=== PATIENT | male | born 1945 | race Caucasian/White ===

== ENCOUNTER → 2024-04-11 12:32 | Outpatient (REF) | payer OTHER, SELFPAY | LOC: RCS 12:32 | PROVIDERS: ATTENDING PHYSICIAN Internal Medicine Cardiovascular Disease; FAMILY PHYSICIAN Family Medicine | DX: E78.2 Mixed hyperlipidemia (principal) | CPT/HCPCS: 93225; 93226 ==

== ENCOUNTER 2024-06-18 15:04 | Observation (INO) | payer OTHER, SELFPAY ==
[2024-06-18] VITALS (8 sets, daily range): BP systolic 124–156; BP diastolic 55–76; BMI 31.3; BMI 30.5
[2024-06-18] MEDS: NSS 1000 IV ×2 (09:10→15:35)
[2024-06-18 09:32] LABS: % Basophils 0.6 % (0-2); % Eosinophils 1.4 % (0-6); % Immature Granulocytes 0.6 % (0-0.5); % Lymphocytes 11.7 % (20.5-51.1); % Monocytes 11.4 % (1.7-9.3); % Neutrophils 74.3 % (42.2-75.2); Absolute Basophils 0.1 10^3/uL (0-0.2); Absolute Eosinophils 0.1 10^3/uL (0-0.7); Absolute Immature Granulocytes 0.1 10^3/uL (0-0.05); Absolute Neutrophils 6.4 10^3/uL (1.4-6.5); Hematocrit 38.4 % (39.0-52.0); Hemoglobin 13.3 g/dL (13.0-18.0); Mean Corp Hgb Conc. 34.6 g/dL (33.0-37.0); Mean Corpuscular Hgb 30.2 pg (27.0-31.0); Mean Corpuscular Volume 87.3 fL (80.0-94.0); Nucleated Red Blood Cells % 0 % (-); Platelet Count 260 10^3/uL (130-400); Red Cell Dist. Width 13.7 % (11.5-14.5); White Blood Cell Count 8.5 10^3/uL (4.8-10.8)
[2024-06-18 09:45] LABS: COVID-19 Antigen Negative (Negative); Lactic Acid 2.4 mmol/L (0.7-2.0)
[2024-06-18 09:47] LABS: ALT (SGPT) 20 U/L (0-50); AST (SGOT) 23 U/L (17-59); Albumin 3.3 g/dl (3.5-5.0); Alkaline Phosphatase 133 U/L (38-126); Blood Urea Nitrogen 37 mg/dl (9-20); Calcium 9.2 mg/dl (8.4-10.2); Carbon Dioxide 26 mmol/L (22-30); Chloride 104 mmol/L (98-107); Estimated Creatinine Clearance 43 ml/min; Glucose 147 mg/dl (70-99); Potassium 4.6 mmol/L (3.5-5.1); Sodium 137 mmol/L (135-145); Total Bilirubin 0.9 mg/dl (0.2-1.3); Total Protein 5.8 g/dl (6.3-8.2); eGFR 47.65
[2024-06-18 10:00] LABS: Urine Albumin Trace (Neg - Trace); Urine Bilirubin Negative (Negative); Urine Character Clear (Clear); Urine Color Yellow; Urine Glucose Negative (Negative); Urine Ketone Negative (Negative); Urine Leukocyte Negative (Negative); Urine Nitrite Negative (Negative); Urine Occult Blood Negative (Negative); Urine Specific Gravity 1.015 (<1.030); Urine Urobilinogen Negative (Neg - 1+)
--- NOTE | 2024-06-18 10:30 | ED.GENMED ---
History of Present Illness
General
Chief Complaint: Cold/Flu/URI Symptoms
Source: patient and spouse
Exam Limitations: none
Time Seen by Provider: 06/18/24 08:52
Nursing documentation reviewed up to this point in time: agreed with
History of Present Illness
History of Present Illness:
78 yo male w h/o HLD, NIDDM presents for fever/chills, sweats despite taking two different antibiotics
06/12: saw PCP Dr. Willoughby for routing PE, did prostate exam and told it was enlarged, started him on Doxycycline
06/15 developed fever 103, chills Dr. Willoughby stopped the Doxy (after 6 doses) started Keflex 500 mg QID, (has had 10 doses)
Has had bed soaking sweats at night
Last night fever 102, night sweats
Past History
Past History
ED Past Medical History: Hypercholesterolemia, NIDDM and Psychiatric (depression)
ED Past Surgical History: Other (hernia repair)
Social History
Tobacco: Non-smoker
Alcohol: None
Personal:
Living: with family
Employment: Retired
Review of Systems
Review of Systems
Allergies reviewed?: Yes
All Other Systems: ROS reviewed and negative except as documented in HPI and ROS
Constitutional: Reports fever and chills
EENT: Denies sore throat
Respiratory: Denies cough or trouble breathing
Cardiac: Reports diaphoresis; Denies chest pain, palpitations or syncope
ABD/GI: Denies abdominal pain, nausea, vomiting, diarrhea or constipated
: Denies dysuria, frequency, flank pain, incontinence or urgency
Musculoskeletal: Reports no symptoms
Skin: Reports no symptoms
Neurological: Reports no symptoms
Phy Exam
Physical Exam
Physical Exam:
GENERAL: No acute distress. A&Ox3.
CONSTITUTIONAL: Afebrile.
EYES: PERRL, conjunctivae normal
Neck: Supple
ENMT: moist mucus membranes, Pharynx nl
RESPIRATORY: Regular respirations, nonlabored, lungs clear.
CARDIOVASCULAR: Regular rate and rhythm, no murmurs, no rubs.
GI: Soft, nontender, normal BS
MUSCULOSKELETAL: Moves with ease. Well perfused.
SKIN: Warm, dry, pink
PSYCH: Normal mood and affect. Well kept, interactive and appropriate
NEUROLOGIC: Awake, alert and oriented. No focal neurological deficits
Course
Orders/Labs/Results
Orders:
Orders
06/18/24 09:08
CR Chest - 2 Views Urgent
Comment:
Reason For Exam: fevers, chills
06/18/24 09:09
0.9% Sodium Chloride 1000 ml [Nss] 1,000 ml IV BOLUS
06/18/24 09:17
COVID-19 Antigen Urgent
Source: Nasal Swab
Complete Blood Count/With Diff Urgent
Comprehensive Metabolic Panel Urgent
Lactic Acid Q4H
Comment: CANCEL 2nd LACTIC ACID IF 1st LACTIC ACID IS LESS THAN 2
Blood Culture Urgent
THANH Source: Blood/Venous
Specimen Description:
Influenza A+B Rapid Molecular Urgent
THANH Source: Nasal Swab
Specimen Description:
06/18/24 09:51
Urinalysis Reflex To Culture Urgent
Date Specimen was Collected: 06/18/24
Time Specimen was Collected: 09:50
06/18/24 Lunch
1800 calorie (15 carb) Diabetic
At Your Request: Full Participation
06/18/24 13:09
CefTRIAXone [Rocephin] 1,000 mg IV NOW STA
06/18/24 14:37
Lactic Acid Q4H
Comment: CANCEL 2nd LACTIC ACID IF 1st LACTIC ACID IS LESS THAN 2
Blood Culture Urgent
THANH Source: Blood/Venous
Specimen Description:
06/18/24 14:41
Acetaminophen [Tylenol] 1,000 mg PO NOW STA
US Abdomen Complete/Upper Urgent
Comment:
Reason For Exam: RUQ pain
06/18/24 14:44
Admit/Transfer Patient As Directed
Co-Sign Provider:
Level of Care: Observation services
Assign to:: Telemetry
Physician / Group: emma/hospitalist
Diagnosis: fever, chills, LLL pneumonia, RUQ abd pain
Reason for Telemetry: Arrhythmia
Date to Stop Telemetry: 06/21/24
Time to Stop Telemetry: 11:00
Reason for Hospitalization: fever, chills, LLL pneumonia, RUQ abd pain
06/18/24 14:49
PRN Pain Medication Management As Directed
May give lesser potent ordered pain med per pt: Yes
preference::
Protocol:: Medication orders for pain may be administered in a
manner that supports deferring to patient preference
when the pt is:
- Requesting an ordered lesser potent pain medication.
Least to most potent pain medications are defined
as: acetaminophen < NSAID < tramadol < opioids
(morphine, oxycodone, hydromorphone).
- Requesting a lesser dose of the same medication IF
ORDERED.
- Requesting a less intrusive route of administration
if both routes are prescribed by the provider (PO <
IV).
06/18/24 14:53
Code Status As Directed
Resuscitation Status: Full Code
06/18/24 14:57
MetroNIDAZOLE 500 MG/100 ML [Flagyl 500 mg] 100 ml IV NOW
06/18/24 15:00
Venlafaxine Extended Release [Effexor Xr] 112.5 mg PO DAILY
06/18/24 15:03
0.9% Sodium Chloride 1000 ml [Nss] 1,000 ml IV 125 mls/hr
06/18/24 16:41
Dextrose 50%-Water [Dextrose 50% Syringe] 12.5 grams IV [id number] PRN
Glucagon [GlucaGen] 1 mg IM PRN PRN
Insulin Aspart Corrective Low [Novolog Flexpen-Low Resistance] See Protocol SC AC
MetroNIDAZOLE 500 MG/100 ML [Flagyl 500 mg] 100 ml IV Q8
06/18/24 16:41
Echo 2D MMode Color/Doppler [Echo 2D MMode Color/Doppler] Routine
Reason for Study: murmur/fever
Legionella Urinary Antigen Routine
THANH Source: Urine
Specimen Description:
Respiratory Culture/Gram Stain Routine
THANH Source: Sputum
Specimen Description:
Activity As Directed
Activity Level: Out of Bed-Early Mobility
Bedside Glucose Monitoring As Directed
Frequency: AC&HS
Additional Instructions:: Change to q6h if pt on TPN, tube feeding or not eating
Intake/ Output As Directed
Frequency: Per unit guidelines
Vital Signs As Directed
Frequency: Per unit guidelines
Weight As Directed
Frequency: Once
Comment: on admission
Pulse Ox/cont/shift [RESP] Routine
Quantity: 1
Pulse Ox/spot Check [RESP] Routine
Quantity: 1
Pt Eval And Treat Routine
Activity Level: With Assistance
DX Deep Vein Thrombosis Video Routine
06/18/24 18:00
Enoxaparin Sodium [Lovenox] 40 mg SC QPM
Rosuvastatin Calcium [Crestor] 5 mg PO QPM
06/18/24 20:00
Propranolol [Inderal] 40 mg PO BID
06/18/24 22:00
Tamsulosin [Flomax] 0.8 mg PO HS
06/19/24 06:00
Complete Blood Count/With Diff IN AM
Comprehensive Metabolic Panel IN AM
06/19/24 08:00
Multivitamin [Theragran] 1 tablet PO DAILY
Cpfrphviualt-Wrv-Gfhz [Androgel] 5 grams TOPICAL DAILY
06/19/24 14:00
CefTRIAXone [Rocephin] 1,000 mg IV Q24H
06/19/24 16:00
Azithromycin 500 mg/250 ml [Zithromax Infusion] 500 mg in 250 ml IV Q24H
06/21/24 11:00
DC Protocol for Telemetry ONCE
Abnormal Lab Results
06/18/24
09:17
RBC 4.40 L 10^6/uL
(4.70-6.10)
Hct 38.4 L %
(39.0-52.0)
Abs Immat Gran (auto) 0.1 H 10^3/uL
(0-0.05)
Absolute Lymphs (auto) 1.0 L 10^3/uL
(1.2-3.4)
Absolute Monos (auto) 1.0 H 10^3/uL
(0.1-0.6)
Immature Gran % 0.6 H %
(0-0.5)
Lymphocytes % 11.7 L %
(20.5-51.1)
Monocytes % 11.4 H %
(1.7-9.3)
BUN 37 H mg/dl
(9-20)
Creatinine 1.5 H mg/dL
(0.7-1.3)
Glucose 147 H mg/dl
(70-99)
Lactic Acid 2.4 H mmol/L
(0.7-2.0)
Alkaline Phosphatase 133 H U/L
(38-126)
Total Protein 5.8 L g/dl
(6.3-8.2)
Albumin 3.3 L g/dl
(3.5-5.0)
06/18/24 09:17
06/18/24 09:17
Vital Signs
Initial and Last Documented VS:
Initial Vital Signs
Temp Pulse Resp BP Pulse Ox
98.6 F 68 18 131/62 97
06/18/24 08:11 06/18/24 08:11 06/18/24 08:11 06/18/24 08:11 06/18/24 08:11
Last Documented Vital Signs
Temp Pulse Resp BP Pulse Ox
98.7 F 77 16 124/61 95
06/18/24 16:51 06/18/24 16:51 06/18/24 16:51 06/18/24 16:51 06/18/24 16:51
Driver/Refuse Collector consulted with Physician
Driver/Refuse Collector consulted with physician?: Yes
Name of Physician Consulted: Mily
MDM/Problems Addressed
Differential Diagnosis Includes:
UTI, prostatitis, bacteremia
MDM/Problems Addressed:
78 yo male w h/o HLD, NIDDM presents for fever/chills, sweats despite taking two different antibiotics
06/12: saw PCP Dr. Willoughby for routing PE, did prostate exam and told it was enlarged, started him on Doxycycline
06/15 developed fever 103, chills Dr. Willoughby stopped the Doxy (after 6 doses) started Keflex 500 mg QID, (has had 10 doses)
Has had bed soaking sweats at night
Last night fever 102, night sweats
10:30 a.m.
CBC unremarkable.
CMP: BUN/Creat 37/1.5 otherwise unremarkable
U/A neg
Covid neg
Flu neg
Lactic 2.[address] Minor
Pt totally nontoxic appearing, feels well. Will repeat Lactic after fluids
12:50 p.m.
CXR: Radiology report read: IMPRESSION:
Mild left basilar atelectasis and/or pneumonia.
Pt with shaking chills. Temp 99.4
Patient states he does not know what his reaction to penicillin is. Someone told him when he was 14 years old that he was allergic
Rocephin IV ordered
Hospitalist notified of admission
Blood culture pending
2:45 p.m.
Pt fever 102.0, Dr. Hamm in, requests US upper abd for RUQ pain, Also to start Azithromycin, Tylenol ordered for fever.
*Critical Care Note
Total Time (30-74mins, 75-104mins- exclusive of procedures): Not Applicable
ED Attending Note
-
Portions of this chart may have been created with voice recognition software.� Occasional wrong word or��sound alike� substitutions may have occurred due to the inherent limitations of voice recognition software.
Discharge Plan
Departure
Patient Disposition: Admit
Date of Disposition: 06/18/24
Time of Disposition: 13:08
Presentation/result/management discussed w/ accepting MD/DO: Hospitalist
Condition: Fair
Covid-19: Negative COVID-19
Discharge Problem:
Pneumonia
Interventions
Interventions:
*Risk Screen - Suicide Last Done: 06/18/24 08:11
*General Assessment Last Done: 06/18/24 08:11
*Neglect/Abuse Screening Last Done: 06/18/24 08:11
ED- Fall Risk Assessment Last Done: 06/18/24 09:04
*ED COVID-19 Vaccine History Last Done: 06/18/24 14:20
*Nursing Disposition Last Done: 06/18/24 16:43
ED- Pulmonary Assessment Last Done: 06/18/24 09:05
Discharge Date and Time
Discharge Date/Time: 06/18/24 16:46
--- NOTE | 2024-06-18 14:05 | HPS.HSE ---
Family Physician
-
Family Physician: José Miguel Willoughby
Chief Complaint
-
fever/chills
History of Present Illness
The patient is a 78 yo male with PMH significant for HLD, NIDDM, depression, sinus tachycardia, orchiectomy, Sjogren's, RA, who presents to the ED due to fever and chills, sweats, despite being on oral OP antibiotics due to recent diagnosis of
prostatitis. He saw his PCP on 06/12 for routine visit, who did prostate exam and he was diagnosed with prostatitis, started on Doxycycline, then on 06/15 he developed a fever up to 103 with chills. He was then started on Keflex (had 6 doses of Doxy),
and now 10 doses of Keflex. Fever 102 last night. Found to have LLL pneumonia vs atelectasis on CXR in ED. He has fever 102 in ED currently, chills, decreased oral intake due to low appetite over the past 1 week. Of note, he had dental work- 2 root
canals over the past 3 weeks. Dentist said there was no evidence for infection of the tooth. He's recently started propranolol for intermittent sinus tachycardia. He also notes 2 weeks of intermittent RUQ abdominal pain, no n/v/d, no abdominal
complaints otherwise, no dysuria, no CP, no cough, no SOB, no bleeding. No recent travel.
ED txt:
US abd pending
IVF
IV Rocephin, IV Azithromycin
Medical History
Past Medical History
Past Medical History: Reports HTN, Hypercholesterolemia, NIDDM, Psychiatric (Depression) and Other (RA, polycythemia, Sjogren's, Vit D deficiency, not on oral immunosuppressants )
Past Surgical History: Reports Other (Umbilical hernia (2 hernia repairs); orchiectomy w silicone testes)
Social History
Tobacco: Former Smoker
Alcohol: None
Drug: None
Personal:
Living: With Family
Family History
Family History: Not pertinent
Allergies / Home Medications
Allergies reflects when Allergies were last updated in [employer] [facility].
Home Medications with original date entered in [employer] [facility]
Allergy/Medication List:
Allergies
Allergy/AdvReac Type Severity Reaction Status Date / Time
Cephalosporins Allergy Unknown Verified 06/18/24 08:11
penicillin G Allergy unknow Verified 06/18/24 08:11
Penicillins Allergy Unknown Verified 06/18/24 08:11
Sulfa (Sulfonamide Allergy Unknown Verified 06/18/24 08:11
Antibiotics)
sulfamethoxazole Allergy Unknown Verified 06/18/24 08:11
trimethoprim Allergy Unknown Verified 06/18/24 08:11
Home Medications
rosuvastatin 5 mg tablet 5 mg PO QPM 05/11/11
testosterone 1 % (50 mg/5 gram) transdermal gel packet (AndroGel) 1 applic topical DAILY 05/11/11
cephalexin 500 mg capsule 500 mg PO QID 06/18/24
cinnamon bark 500 mg capsule (Cinnamon) 500 mg PO DAILY 06/18/24
gisell (Zingiber officinalis) 250 mg capsule (gisell extract) 250 mg PO DAILY 06/18/24
metformin 500 mg tablet,extended release 24 hr 2,000 mg PO DAILY 06/18/24
propranolol 40 mg tablet 40 mg PO BID 06/18/24
tamsulosin 0.4 mg capsule (Flomax) 0.8 mg PO HS 06/18/24
therapeutic multivitamin 1 tab PO DAILY 06/18/24
turmeric 400 mg capsule 400 mg PO DAILY 06/18/24
venlafaxine 37.5 mg capsule,extended release 24 hr (Effexor XR) 112.5 mg PO DAILY 06/18/24
vitamins A,C,E-fdfo-hsepxt 4,296 mcg-226 mg-90 mg capsule (ICaps AREDS) 1 cap PO DAILY 06/18/24
Review of Systems
-
A 12 point ROS was completed and negative except as noted: Yes
Physical Exam
Vital Signs
Vital Signs
Temp Pulse Resp BP Pulse Ox
98.6 F 68 18 137/57 98
06/18/24 08:11 06/18/24 08:11 06/18/24 08:11 06/18/24 10:00 06/18/24 11:00
Physical Exam
General: Well Developed, Well Nourished and Other (fever/chills)
HEENT: Atraumatic, Good Dentition (no evidence for abscess nor infection) and Other (eyes injected/dry b/l)
Respiratory: Clear
Cardiac: S1/S2, Regular Rhythm and Murmur (possible GALE, difficult to appreciate due to body habitus)
GI: Soft, Normal Bowel Sounds and Other (voluntary guarding RUQ)
Musculoskeletal: No Clubbing, No Cyanosis and No Edema
Skin: Warm and Dry
Neuro: AO x 3, No Motor Deficits and Nonfocal/grossly intact
Psych: Calm
Laboratory Results
-
06/18/24 09:17
06/18/24 09:17
Laboratory Results
Lactic Acid 2.4 mmol/L (0.7-2.0) H 06/18/24 09:17
Total Bilirubin 0.9 mg/dl (0.2-1.3) 06/18/24 09:17
AST 23 U/L (17-59) 06/18/24 09:17
ALT 20 U/L (0-50) 06/18/24 09:17
Alkaline Phosphatase 133 U/L (38-126) H 06/18/24 09:17
Data Reviewed
-
Diagnostic Radiology: Image Personally Visualized and interpreted, Report Reviewed by me (LLL atelectasis vs PNA), Discussed with Nurse, Discussed with Patient and Discussed with Family
Lab Data: Labs Reviewed by me, Discussed with Nurse, Discussed with Patient and Discussed with Family
Impression/Plan
-
IMPRESSION:The patient is a 78 yo male with PMH significant for HLD, NIDDM, depression, sinus tachycardia, orchiectomy, Sjogren's, RA, who presents to the ED due to fever and chills, sweats, despite being on oral OP antibiotics due to recent
diagnosis of prostatitis. He saw his PCP on 06/12 for routine visit, who did prostate exam and he was diagnosed with prostatitis, started on Doxycycline, then on 06/15 he developed a fever up to 103 with chills. He was then started on Keflex (had 6
doses of Doxy), and now 10 doses of Keflex. Fever 102 last night. Found to have LLL pneumonia vs atelectasis on CXR in ED. He has fever 102 in ED currently, chills, decreased oral intake due to low appetite over the past 1 week. Of note, he had
dental work- 2 root canals over the past 3 weeks. Dentist said there was no evidence for infection of the tooth. He's recently started propranolol for intermittent sinus tachycardia. He also notes 2 weeks of intermittent RUQ abdominal pain, no
n/v/d, no abdominal complaints otherwise, no dysuria, no CP, no cough, no SOB, no bleeding. No recent travel.
#Fever, chills, persistent despite oral antibiotics; CXR with Mild left basilar atelectasis versus pneumonia. Given fever, favor possible atypical pneumonia, gram negative, versus FUO and will also pursue work-up
-pt c/o RUQ abd pain x 2 weeks- US Abd pending in ED
-Cont IV Romaine/IV Azithromycin, add IV Flagyl in light of recent dental work/root canal to cover anaerobes, consider ID consult if fever persists
-IVF
-Blood and sputum cx
-monitor O2
-KHURRAM
-Echo given fever and to evaluate heart valves (may have murmur, but difficult to appreciate on exam)
#EMERITA - Creat 1.5, baseline likely 0.9
-Continuie IVF 125 mL per hour NS for one more bag, then repeat labs in am
# Lactic acidosis, 2.4
-likely due to infection
-cont IVF
-serial LA level /trend
-hold metformin for now
#NIDDM
-hold metformin
-SSI, low dose
-monitor glucose
#RA/Sjogren's, not on immunosuppressants
#Sinus tachy , history of, currently NSR
-check EKG
-tele overnight
-cont home Propranolol
#Depression
-Cont Effexor XR
#Essential HTN, BP stable
-cont home meds Propranolol
#HLD
-continue rosuvastatin
#BPH
-Flomax
DVT proph-Lovenox
Full Code
[2024-06-18] MEDS: TYLENOL 1000 MG PO (14:46)
[2024-06-18] MEDS: ROCEPHIN 1000 MG IV (14:49)
[2024-06-18 15:12] LABS: Lactic Acid 1.5 mmol/L (0.7-2.0)
[2024-06-18] MEDS: EFFEXOR XR 112.5 MG PO (15:32)
[2024-06-18] MEDS: ZITHROMAX 255 MG IV (15:33)
[2024-06-18] MEDS: LOVENOX 40 MG SC (17:29)
[2024-06-18] MEDS: EFFEXOR XR PO ×2 (17:29→17:39)
[2024-06-18] MEDS: CRESTOR 5 MG PO (17:29)
[2024-06-18] MEDS: FLAGYL 500 MG 100 IV ×2 (17:29→23:19)
[2024-06-18 17:48] LABS: Glucose - Point of Care 129 mg/dl (70-99)
[2024-06-18 19:08] LABS: Hepatitis C Antibody Negative (Negative)
[2024-06-18 21:06] LABS: Glucose - Point of Care 114 mg/dl (70-99)
[2024-06-18] MEDS: INDERAL 40 MG PO (21:29)
[2024-06-18] MEDS: FLOMAX 0.8 MG PO (21:35)
[2024-06-19] VITALS (8 sets, daily range): BP systolic 135–158; BP diastolic 50–66; PULSE 70; O2SAT 99
[2024-06-19] MEDS: TYLENOL 1000 MG PO (00:49)
[2024-06-19 08:01] LABS: Glucose - Point of Care 116 mg/dl (70-99)
--- NOTE | 2024-06-19 08:07 | W.PN.HOSP.TC ---
Today's Communication/Plan
-
IV antibiotics. ID consult.
Assessment / Plan
Assessment / Plan
Physical exam:
General: Well Developed, Well Nourished and No Apparent Distress
HEENT: Normocephalic, Atraumatic and Moist Mucous Membranes
Respiratory: Clear to Auscultation; Negative Wheezes, Rales or Rhonchi
Cardiac: Regular Rhythm and S1/S2
GI: Soft, Nontender and Nondistended
Musculoskeletal: No Clubbing, No Cyanosis and No Edema
Neuro: Awake, Alert and Oriented
Psych: Calm
A/P:
Fever, not localizing/sepsis, POA:
Empirically on IV Rocephin and metronidazole (not sure we need to keep metronidazole at this point)
Blood cultures pending but no growth
Echocardiogram done but pending
Ultrasound of the abdomen unremarkable for acute finding but left kidney cyst that we will follow-up as outpatient and discussed with patient and .
Chest x-ray atelectasis versus pneumonia-likely atelectasis (not very impressive with findings)
UA unremarkable
Will request ID consult-Colton texted ID today.
Discussed with at bedside
Sinus tachycardia:
Related to above
Supportive care
EMERITA:
Continue IV fluids but decrease rate
Continue to monitor renal function
Diabetes mellitus type 2:
Blood sugar 124 this morning
Agree holding metformin
Continue insulin sliding
Monitor blood sugars
Sjogren's syndrome/rheumatoid arthritis:
Not on any immunosuppressant
Hypertension:
Continue home antihypertensives.
Monitor blood pressure and adjust medications accordingly.
Hyperlipidemia:
Continue home statins
Depression:
Continue Effexor
BPH:
Continue Flomax
DVT prophylaxis:
Lovenox
CODE STATUS:
Full code
Total time spent on today's encounter was 52 minutes which included time spent in counseling the patient/family regarding diagnosis and treatment plan as listed above, goals of care, and symptom management. Case was discussed with nursing staff,
specialists, and care coordinators/case management. All labs and imaging personally reviewed by me. Remainder the time spent in detailed review of previous records, lab data, imaging, and other medical provider documentation.
Anticipated Discharge: 24 - 48 hours
Subjective/Interval History
-
Date of Service: June 19, 2024
Patient still having fevers and Tmax 103 Fahrenheit. Generalized weakness. No rash. No abdominal pain. Had loose stools prior but not today. No chest pain or shortness of breath.
Objective Data
-
Labs:
Laboratory Results
06/19/24
07:54
WBC Pending
Hgb Pending
Hct Pending
Plt Count Pending
Sodium Pending
Potassium Pending
Chloride Pending
Carbon Dioxide Pending
BUN Pending
Creatinine Pending
Glucose Pending
Calcium Pending
Total Bilirubin Pending
AST Pending
ALT Pending
Alkaline Phosphatase Pending
Vital Signs:
Vital Signs
Temp Pulse Resp BP Pulse Ox
98.2 F 66 16 138/62 96
06/19/24 03:32 06/19/24 03:32 06/19/24 03:32 06/19/24 03:32 06/19/24 03:32
I&O
06/18/24 06/19/24 06/20/24
06:59 06:59 06:59
Intake Total 660 / 660
Output Total 375 / 375
Balance 285 / 285
[2024-06-19 09:04] LABS: % Basophils 0.8 % (0-2); % Eosinophils 1.3 % (0-6); % Immature Granulocytes 1.6 % (0-0.5); % Lymphocytes 15.3 % (20.5-51.1); % Monocytes 12.6 % (1.7-9.3); % Neutrophils 68.4 % (42.2-75.2); Absolute Basophils 0.1 10^3/uL (0-0.2); Absolute Eosinophils 0.1 10^3/uL (0-0.7); Absolute Immature Granulocytes 0.2 10^3/uL (0-0.05); Absolute Lymphocytes 1.4 10^3/uL (1.2-3.4); Absolute Monocytes 1.2 10^3/uL (0.1-0.6); Absolute Neutrophils 6.3 10^3/uL (1.4-6.5); Hematocrit 39.1 % (39.0-52.0); Hemoglobin 13.3 g/dL (13.0-18.0); Mean Corpuscular Hgb 30.8 pg (27.0-31.0); Mean Corpuscular Volume 90.5 fL (80.0-94.0); Mean Platelet Volume 10.1 fL (7.4-10.4); Nucleated Red Blood Cells % 0 % (-); Platelet Count 250 10^3/uL (130-400); Red Blood Cell Count 4.32 10^6/uL (4.70-6.10); Red Cell Dist. Width 13.9 % (11.5-14.5); White Blood Cell Count 9.2 10^3/uL (4.8-10.8)
--- NOTE | 2024-06-19 09:34 | PTOTSP ---
Patient demonstrates safe and independent mobility, no skilled physical therapy needs at this time.
[2024-06-19 09:37] LABS: ALT (SGPT) 35 U/L (0-50); AST (SGOT) 39 U/L (17-59); Albumin 3.1 g/dl (3.5-5.0); Alkaline Phosphatase 199 U/L (38-126); Blood Urea Nitrogen 27 mg/dl (9-20); Calcium 8.8 mg/dl (8.4-10.2); Carbon Dioxide 27 mmol/L (22-30); Chloride 105 mmol/L (98-107); Estimated Creatinine Clearance 45 ml/min; Glucose 124 mg/dl (70-99); Potassium 4.5 mmol/L (3.5-5.1); Total Bilirubin 0.6 mg/dl (0.2-1.3); Total Protein 5.4 g/dl (6.3-8.2); eGFR 51.77
[2024-06-19 09:43] LABS: Sodium 138 mmol/L (135-145)
[2024-06-19] MEDS: EFFEXOR XR 112.5 MG PO (10:39)
[2024-06-19] MEDS: THERAGRAN 1 TABLET PO (10:40)
[2024-06-19] MEDS: INDERAL 40 MG PO ×2 (10:40→21:41)
[2024-06-19] MEDS: FLAGYL 500 MG 100 IV (10:40)
[2024-06-19] MEDS: TYLENOL 650 MG PO ×3 (10:53→23:30)
[2024-06-19 11:52] LABS: Glucose - Point of Care 125 mg/dl (70-99)
--- NOTE | 2024-06-19 12:55 | CON.ID ---
Chief Complaint / Past History
History of Present Illness
Cory Romero is a 78-year-old man being evaluated at the request of Dr. Rivas in regards to fever. History is obtained from chart review, along with patient interview.
The patient has a significant past medical history of diabetes mellitus. On 06/12/2024 he was in to see his PCP for routine physical exam. During that visit he was told he had an enlarged prostate and he was started on doxycycline. On 06/15 he
developed fevers to 103 degrees and he was changed from doxycycline to Keflex. Despite antibiotics he has been having ongoing fever, along with night sweats. He reports multiple negative COVID testing. No reported sick contacts.
No recent travel noted. There are no pets in the house. He has minimal outdoor exposure other than mowing the grass last week.
No history of rashes. No shortness of breath, cough or congestion. No sputum production. No abdominal pain. No dysuria or hematuria.
Past History
Additional Past Medical History:
Dyslipidemia
NIDDM
Depression
Additional Past Surgical History:
Hernia repair
Orchiectomy
Allergy History:
Penicillins Allergy (Verified 06/18/24 08:11)
Reported rash at age 14.
Sulfa (Sulfonamide Antibiotics) Allergy (Verified 06/18/24 08:11)
Unknown
Medications Reviewed: Yes
Current Antibiotics:
Azithromycin 5 mg IV every 24 hours
Ceftriaxone 1 g IV every 24 hours
Social History
Tobacco: Non-Smoker
Alcohol: None
Drug: None
Personal:
Living: With Family
Employment: Retired
Family History
Family History: Not Pertinent
Review of Systems
Vital Signs
Temp Pulse Resp BP Pulse Ox
99.9 F 69 24 158/66 97
06/19/24 12:19 06/19/24 12:05 06/19/24 12:05 06/19/24 12:05 06/19/24 12:05
Physical Exam
Physical Exam
Constitutional: No Acute Distress, Comfortable, Non-toxic and Obese
Eyes: No Conjunctival Hemorrhage and Sclera Anicteric
Pharynx: Benign
Oral: No Thrush and No Ulcers
Cardiovascular: Regular Rate and S1/S2; Negative S3/S4 or Murmur
Pulmonary: Clear and Non Labored; Negative Wheezes, Rales or Rhonchi
Gastrointestinal: Soft, Non Tender, Non Distended, No Rebound and No Guarding
Extremities: Negative Edema, Cyanosis or Erythema
Skin: Warm and Dry; Negative Rash or Jaundice
Neurological: Awake, Alert, Oriented and AO x 3; Negative Meningeal Signs
Psychological: Calm
Lab / Diagnostic Study Results
06/19/24 07:54
06/19/24 07:54
Abs Immat Gran (auto) 0.2 10^3/uL (0-0.05) H 06/19/24 07:54
Absolute Neuts (auto) 6.3 10^3/uL (1.4-6.5) 06/19/24 07:54
Absolute Lymphs (auto) 1.4 10^3/uL (1.2-3.4) 06/19/24 07:54
Absolute Monos (auto) 1.2 10^3/uL (0.1-0.6) H 06/19/24 07:54
Absolute Basos (auto) 0.1 10^3/uL (0-0.2) 06/19/24 07:54
Immature Gran % 1.6 % (0-0.5) H 06/19/24 07:54
Neutrophils % 68.4 % (42.2-75.2) 06/19/24 07:54
Lymphocytes % 15.3 % (20.5-51.1) L 06/19/24 07:54
Monocytes % 12.6 % (1.7-9.3) H 06/19/24 07:54
Eosinophils % 1.3 % (0-6) 06/19/24 07:54
Basophils % 0.8 % (0-2) 06/19/24 07:54
Lactic Acid 1.5 mmol/L (0.7-2.0) 06/18/24 14:37
Microbiology Results
Micro:
06/18/24 09:17 Blood Culture - Preliminary
Blood/Venous No Growth in 24 hours- Final report to follow
06/18/24 16:41 Legionella Urinary Antigen - Final
Urine Negative for Legionella pneumophila Serogroup 1 antigen.
A negative result does not rule out the possiblity of
Legionella infection due to other serogroups or species of
Legionella. Clinical correlation is recommended.
06/18/24 14:37 Blood Culture - Pending
Blood/Venous
06/18/24 09:17 Influenza Types A & B (SURINDER) - Final
Nasal Swab Negative for Influenza A & B, NAAT
Negative results must be combined with clinical observations
and patient history.
Nucleic Acid Amplification test (NAAT)performed on the
[employer] platform.
Imaging:
06/18/2024 CXR (2 view): Mild patchy left basilar airspace opacity. Mild right hemidiaphragm elevation. No significant pleural effusions. Overall impression is that of mild left basilar atelectasis and/or pneumonia.
06/18/2024 Abdominal ultrasound: No sonographic evidence of acute cholecystitis. Please see full dictation for additional detail.
Assessment / Plan
Fever
Dyslipidemia
NIDDM
Depression
Recommendations:
At present, patient without significant respiratory symptomatology, making pneumonia much less likely.
No other immediately identifiable source of fevers.
Drug fever remains on the differential.
Would discontinue further antibiotics for the present.
Will continue to follow pending cultures.
Monitor white count and temperature curve
Check ESR and CRP in AM.
Will continue to follow clinically, with additional recommendations as further data is returned.
[2024-06-19 16:04] LABS: Glucose - Point of Care 155 mg/dl (70-99)
--- NOTE | 2024-06-19 16:33 | CM ---
food and beverage service manager reviewed patient's chart and met with patient and spouse at bedside, patient was admitted under OBS, patient and family upset patient lives with spouse, in a 2 story home, patient is independent with adl's and ambulation, no dme,
patient is currently ambulating 150 feet.
Pharmacy: [facility]
PCP: Dr. Willoughby
Plan; Home when stable.
[2024-06-19 17:01] LABS: Glucose - Point of Care 123 mg/dl (70-99)
[2024-06-19] MEDS: CRESTOR 5 MG PO (17:05)
[2024-06-19] MEDS: LOVENOX 40 MG SC (17:05)
[2024-06-19 21:40] LABS: Glucose - Point of Care 131 mg/dl (70-99)
[2024-06-19] MEDS: FLOMAX 0.8 MG PO (21:41)
[2024-06-20 03:00] VITALS: BP 134/82
[2024-06-20 07:00] VITALS: BP 158/69
[2024-06-20 08:11] LABS: Glucose - Point of Care 119 mg/dl (70-99)
--- NOTE | 2024-06-20 08:29 | W.PN.HOSP.TC ---
Today's Communication/Plan
-
Discharge planning today
Assessment / Plan
Assessment / Plan
Physical exam:
General: Well Developed, Well Nourished and No Apparent Distress
HEENT: Normocephalic, Atraumatic and Moist Mucous Membranes
Respiratory: Clear to Auscultation; Negative Wheezes, Rales or Rhonchi
Cardiac: Regular Rhythm and S1/S2
GI: Soft, Nontender and Nondistended
Musculoskeletal: No Clubbing, No Cyanosis and No Edema
Neuro: Awake, Alert and Oriented
Psych: Calm
A/P:
Fever, not localizing:
ID consult appreciated. ID stopped all antibiotics and recommend to observe. Discussed with ID today and they are clearing him for discharge today.
Prior to today:
No evidence of sepsis
Blood cultures no growth
Echocardiogram done unremarkable
Ultrasound of the abdomen unremarkable for acute finding but left kidney cyst that we will follow-up as outpatient and discussed with patient and .
Chest x-ray atelectasis versus pneumonia-likely atelectasis (not very impressive with findings)
UA unremarkable.
Discussed with at bedside prior
EMERITA:
Stop IV fluids
Creatinine down to 1.2 (1.5 upon admission)
Continue to monitor renal function
Diabetes mellitus type 2:
Blood sugar stable this morning
Agree holding metformin
Continue insulin sliding
Monitor blood sugars
Sjogren's syndrome/rheumatoid arthritis:
Not on any immunosuppressant
Hypertension:
Continue home antihypertensives.
Monitor blood pressure and adjust medications accordingly.
Hyperlipidemia:
Continue home statins
Depression:
Continue Effexor
BPH:
Continue Flomax
DVT prophylaxis:
Lovenox
CODE STATUS:
Full code
Anticipated Discharge: Today
Subjective/Interval History
-
Date of Service: June 20, 2024
Patient feels well today. Afebrile
Objective Data
-
Labs:
Laboratory Results
06/20/24
06:51
WBC Pending
Hgb Pending
Hct Pending
Plt Count Pending
Sodium Pending
Potassium Pending
Chloride Pending
Carbon Dioxide Pending
BUN Pending
Creatinine Pending
Glucose Pending
Calcium Pending
Vital Signs:
Vital Signs
Temp Pulse Resp BP Pulse Ox
98.5 F 66 16 158/69 96
06/20/24 07:00 06/20/24 07:00 06/20/24 07:00 06/20/24 07:00 06/20/24 07:00
I&O
06/19/24 06/20/24 06/21/24
06:59 06:59 06:59
Intake Total 660 / 660 480 / 480
Output Total 375 / 375 600 / 600
Balance 285 / 285 -120 / -120
[2024-06-20 08:54] LABS: % Basophils 1.2 % (0-2); % Eosinophils 1.5 % (0-6); % Immature Granulocytes 2.5 % (0-0.5); % Lymphocytes 16.1 % (20.5-51.1); % Monocytes 10.9 % (1.7-9.3); % Neutrophils 67.8 % (42.2-75.2); Absolute Basophils 0.1 10^3/uL (0-0.2); Absolute Eosinophils 0.2 10^3/uL (0-0.7); Absolute Immature Granulocytes 0.3 10^3/uL (0-0.05); Absolute Lymphocytes 1.7 10^3/uL (1.2-3.4); Absolute Monocytes 1.2 10^3/uL (0.1-0.6); Absolute Neutrophils 7.3 10^3/uL (1.4-6.5); Hemoglobin 14.2 g/dL (13.0-18.0); Mean Corp Hgb Conc. 35.5 g/dL (33.0-37.0); Mean Corpuscular Hgb 31.1 pg (27.0-31.0); Mean Corpuscular Volume 87.7 fL (80.0-94.0); Mean Platelet Volume 10.1 fL (7.4-10.4); Nucleated Red Blood Cells % 0 % (-); Platelet Count 264 10^3/uL (130-400); Red Blood Cell Count 4.56 10^6/uL (4.70-6.10); Red Cell Dist. Width 13.6 % (11.5-14.5); White Blood Cell Count 10.7 10^3/uL (4.8-10.8)
[2024-06-20] MEDS: EFFEXOR XR 112.5 MG PO (08:56)
[2024-06-20] MEDS: THERAGRAN 1 TABLET PO (08:56)
[2024-06-20] MEDS: INDERAL 40 MG PO (08:56)
[2024-06-20 09:08] LABS: Blood Urea Nitrogen 23 mg/dl (9-20); Calcium 9.3 mg/dl (8.4-10.2); Carbon Dioxide 20 mmol/L (22-30); Chloride 107 mmol/L (98-107); Estimated Creatinine Clearance 53 ml/min; Glucose 114 mg/dl (70-99); Sodium 139 mmol/L (135-145); eGFR > 60.00
[2024-06-20 09:35] LABS: Potassium 4.6 mmol/L (3.5-5.1)
--- NOTE | 2024-06-20 10:36 | W.PN.ID1 ---
Date of Service
Date of Service: June 20, 2024
Today's Communication
Observe off antibiotics.
Assessment / Plan
Fever
Dyslipidemia
NIDDM
Depression
Recommendations:
At present, patient without significant respiratory symptomatology, making pneumonia much less likely.
No other immediately identifiable source of fevers. Cultures remain negative.
Drug fever remains on the differential.
Would continue to observe off antibiotics.
Monitor white count and temperature curve. Patient counseled to follow temperatures once discharged.
CRP noted to be elevated.
Will continue to follow clinically, with additional recommendations as further data is returned.
No objection to discharge with further workup (if necessary) thereafter.
Chief Complaint
-: Fever
Subjective / Review of Systems
Patient seen and examined. Overall feels well. Denies cough. Temp curve appears to be improving.
Vital Signs / Physical Exam
Vital Signs
Vital Signs
Temp Pulse Resp BP Pulse Ox
98.5 F 73 16 137/58 96
06/20/24 07:00 06/20/24 08:56 06/20/24 07:00 06/20/24 08:56 06/20/24 07:00
Tmax 100.8 (06/19/2024 23:00)
Physical Exam
Constitutional: No Acute Distress, Comfortable and Non-toxic
Eyes: Sclera Anicteric
Cardiovascular: S1/S2; Negative S3/S4 or Murmur
Pulmonary: Clear and Non Labored; Negative Wheezes, Rales or Rhonchi
Gastrointestinal: Soft, Non Tender and Non Distended
Skin: Negative Rash or Jaundice
Neurological: Awake, Alert and Oriented
Psychological: Calm
Objective Data
Lab Data
Lab Results
06/20/24 06:51
06/20/24 06:51
Estimated Creat Clear 53 ml/min 06/20/24 06:51
Lactic Acid 1.5 mmol/L (0.7-2.0) 06/18/24 14:37
Total Bilirubin 0.6 mg/dl (0.2-1.3) 06/19/24 07:54
AST 39 U/L (17-59) 06/19/24 07:54
ALT 35 U/L (0-50) 06/19/24 07:54
Alkaline Phosphatase 199 U/L (38-126) H 06/19/24 07:54
C-Reactive Protein 220.10 mg/L (0.0-10.00) H 06/20/24 06:51
Most recent labs reviewed.
Micro Results:
06/18/24 09:17 Blood Culture - Preliminary
Blood/Venous No Growth in 48 hours- Final report to follow
06/18/24 14:37 Blood Culture - Preliminary
Blood/Venous No Growth in 24 hours- Final report to follow
06/18/24 16:41 Legionella Urinary Antigen - Final
Urine Negative for Legionella pneumophila Serogroup 1 antigen.
A negative result does not rule out the possiblity of
Legionella infection due to other serogroups or species of
Legionella. Clinical correlation is recommended.
06/18/24 09:17 Influenza Types A & B (SURINDER) - Final
Nasal Swab Negative for Influenza A & B, NAAT
Negative results must be combined with clinical observations
and patient history.
Nucleic Acid Amplification test (NAAT)performed on the
[employer] platform.
Imaging:
06/18/2024 CXR (2 view): Mild patchy left basilar airspace opacity. Mild right hemidiaphragm elevation. No significant pleural effusions. Overall impression is that of mild left basilar atelectasis and/or pneumonia.
06/18/2024 Abdominal ultrasound: No sonographic evidence of acute cholecystitis. Please see full dictation for additional detail.
Care Review
Plan reviewed with: Physician (Hospitalist)
--- NOTE | 2024-06-20 10:43 | W.DCSUMMARY ---
Discharge Summary
Discharge Data
Date of Admission: 06/18/24
Date of Discharge: 06/20/24
-
Pending Results: No
Hospital Course
Patient is 78 years old male history hypertension diabetes mellitus presented to the hospital with fever. Patient was started on empiric antibiotics and was kept in the hospital and ID consulted. ID discontinued antibiotics and felt that he can be
observed off antibiotics. His workup for infectious etiology has been unremarkable in the hospital including blood cultures sterile, chest x-ray with atelectasis, urinalysis unremarkable, echocardiogram with no vegetations. Patient's fever have
subsided. ID cleared him for discharge today and feels that he can go home and they will follow-up with him as if any tests necessary down the road as outpatient. Otherwise, patient hemodynamically stable, afebrile, and feels symptomatically much
improved.
Discharge instruction: 35 minutes
Discharge Plan
-
Patient Disposition: Home (Routine Discharge)
Discharge Diagnosis/Procedures: Fever of unclear etiology.
Diet: Diabetic, Carb Controlled
Activity: As tolerated
Blood Work: Please PCP to order CBC, BMP within 1 week
Referrals:
José Miguel Willoughby MD [Family Provider] - in less than 1 week
Joshua Ag DO [Active] - in one to two weeks
Prescriptions:
Continued
testosterone [AndroGel] 5 GRAM gel in packet
1 applic topical DAILY
rosuvastatin 5 MG tablet
5 mg PO QPM
venlafaxine [Effexor XR] 37.5 mg Capsule,Extended Release 24hr
112.5 mg PO DAILY
therapeutic multivitamin Tablet
1 tab PO DAILY
propranolol 40 mg Tablet
40 mg PO BID
tamsulosin [Flomax] 0.4 mg Capsule
0.8 mg PO HS
gisell extract 250 mg Capsule
250 mg PO DAILY
metformin 500 mg Tablet Extended Release 24 Hr
2,000 mg PO DAILY
cinnamon bark [Cinnamon] 500 mg Capsule
500 mg PO DAILY
ICaps AREDS 4,296 mcg-226 mg-90 mg Capsule
1 cap PO DAILY
turmeric 400 mg Capsule
400 mg PO DAILY
Discontinued
cephalexin 500 mg Capsule
500 mg PO QID
Discharge Orders:
Discharge Patient (As Directed); Ordered 06/20/24
Ordered By: Geoffrey Rivas
Discharge Date and Time
Discharge Date/Time: 06/20/24 11:39
Print Language: CHINESE
[2024-06-20 11:10] LABS: Erythrocyte Sed Rate 13 mm/hour (0-20)
--- NOTE | 2024-06-20 11:14 | CM ---
Cm reviewed medical records. Patient is medically ready for discharge. No PT needs noted.
PLAN: Home no needs.
[2024-06-20 11:22] VITALS: BP 137/55
== END 2024-06-20 11:39 | disposition home or self-care (01) ==
LOC: 4 EAST ACU 15:04
PROVIDERS: Registered Nurse; ADMITTING PHYSICIAN Internal Medicine; ATTENDING PHYSICIAN Hospitalist; EMERGENCY PHYSICIAN Emergency Medicine; FAMILY PHYSICIAN Family Medicine; OTHER PHYSICIAN Internal Medicine Infectious Disease
DX: R50.9 Fever, unspecified (principal); E78.5 Hyperlipidemia, unspecified; E11.9 Type 2 diabetes mellitus without complications; F32.A Depression, unspecified; E55.9 Vitamin D deficiency, unspecified; E78.00 Pure hypercholesterolemia, unspecified; J18.9 Pneumonia, unspecified organism; M35.00 Sjogren syndrome, unspecified; N41.9 Inflammatory disease of prostate, unspecified; N17.9 Acute kidney failure, unspecified; E87.20 Acidosis, unspecified; J98.11 Atelectasis; I08.0 Rheumatic disorders of both mitral and aortic valves; R00.0 Tachycardia, unspecified; N28.1 Cyst of kidney, acquired; I10 Essential (primary) hypertension; N40.0 Benign prostatic hyperplasia without lower urinary tract symptoms; M06.9 Rheumatoid arthritis, unspecified; D75.1 Secondary polycythemia; Z87.891 Personal history of nicotine dependence; Z90.79 Acquired absence of other genital organ(s); Z11.52 Encounter for screening for COVID-19; Z88.1 Allergy status to other antibiotic agents; Z88.0 Allergy status to penicillin; Z88.2 Allergy status to sulfonamides; Z79.84 Long term (current) use of oral hypoglycemic drugs; Z79.890 Hormone replacement therapy
CPT/HCPCS: 71046; 76700; 80048; 80053; 81003; 82962; 83605; 85025; 85652; 86140; 86803; 87040; 87449; 87502; 87811; 93005; 93306; 96361; 96374; 97162; 99285; G0378

== ENCOUNTER → 2024-08-25 09:15 | Outpatient (REF) | payer OTHER, SELFPAY | LOC: HWRAD 09:15 | PROVIDERS: ATTENDING PHYSICIAN Urology; FAMILY PHYSICIAN Family Medicine | DX: R31.29 Other microscopic hematuria (principal) | CPT/HCPCS: 74178; Q9967 ==

== ENCOUNTER 2024-09-07 06:18 | Day surgery (SDC) | payer OTHER, SELFPAY ==
[2024-09-07] VITALS (8 sets, daily range): BP systolic 127–152; BP diastolic 58–72; BMI 29.0
[2024-09-07 10:43] LABS: Glucose - Point of Care 102 mg/dl (70-99)
[2024-09-07 12:46] LABS: Glucose - Point of Care 100 mg/dl (70-99)
[2024-09-07 14:34] LABS: Glucose - Point of Care 92 mg/dl (70-99)
[2024-09-07] MEDS: DILAUDID 0.25 MG IV (14:48)
== END 2024-09-07 16:26 | disposition home or self-care (01) ==
LOC: SDS 06:18
PROVIDERS: ATTENDING PHYSICIAN Urology
DX: N30.20 Other chronic cystitis without hematuria (principal); N40.1 Benign prostatic hyperplasia with lower urinary tract symptoms; N32.9 Bladder disorder, unspecified; R82.0 Chyluria
CPT/HCPCS: 52224; 88305; 82962; 88341; 88342

== ENCOUNTER → 2025-05-22 12:41 | Outpatient (REF) | payer OTHER, SELFPAY | LOC: HWRAD 12:41 | PROVIDERS: ATTENDING PHYSICIAN Physician Assistant Medical; FAMILY PHYSICIAN Family Medicine | DX: M54.31 Sciatica, right side (principal); M54.10 Radiculopathy, site unspecified | CPT/HCPCS: 72110 ==

== ENCOUNTER → 2025-09-11 12:47 | Outpatient (REF) | payer OTHER, SELFPAY | LOC: HWRCS 12:47 | PROVIDERS: ATTENDING PHYSICIAN Family Medicine | DX: R06.9 Unspecified abnormalities of breathing (principal); E78.2 Mixed hyperlipidemia; D75.1 Secondary polycythemia; E11.65 Type 2 diabetes mellitus with hyperglycemia; I10 Essential (primary) hypertension | CPT/HCPCS: 76770; 93306 ==